=== PATIENT | female | born 1950 | race Caucasian/White ===

== ENCOUNTER 2020-06-11 09:44 | Day surgery (SDC) | payer MEDICARE ==
[~2020-06-11] VITALS: Ht 172.7 cm; Wt 140.2 kg
[~2020-06-11 09:44] MED LIST: EUTHYROX150 MCG PO; Vitamin D2000 UNIT PO
--- NOTE | 2020-06-11 12:15 | NUR ---
06/11/20 1215 Sully Aguilar PT TRANSFERS FROM [facility] TO [facility] WITHOUT DIFFICULTY. STATES PAIN TOELRABLE AT 4/10. PT O2 SATS DROP TO 89% ON RA. PLACED PT ON O2 AT 2L VIA NC. PT DENIES NEEDS. WILL CONTINUE TO MONITOR.
== END 2020-06-11 13:00 | disposition home or self-care (01) ==
LOC: ORSCSDS 09:44
PROVIDERS: Orthopaedic Surgery
PROC: 0RNJ4ZZ Release Right Shoulder Joint, Percutaneous Endoscopic Approach (ICD-10-PCS; principal; 2020-06-11 11:30)
PROC: 0LU14KZ Supplement Right Shoulder Tendon with Nonautologous Tissue Substitute, Percutaneous Endoscopic Approach (ICD-10-PCS; principal; 2020-06-11 11:30)
PROC: 0RBJ4ZZ Excision of Right Shoulder Joint, Percutaneous Endoscopic Approach (ICD-10-PCS; principal; 2020-06-11 11:30)
PROC: 0LQ14ZZ Repair Right Shoulder Tendon, Percutaneous Endoscopic Approach (ICD-10-PCS; principal; 2020-06-11 11:30)
DX: M75.111 Incomplete rotator cuff tear or rupture of right shoulder, not specified as traumatic (principal); M19.011 Primary osteoarthritis, right shoulder; M75.51 Bursitis of right shoulder; M75.41 Impingement syndrome of right shoulder; F17.210 Nicotine dependence, cigarettes, uncomplicated; J44.9 Chronic obstructive pulmonary disease, unspecified; E03.9 Hypothyroidism, unspecified; E66.01 Morbid (severe) obesity due to excess calories; Z68.42 Body mass index [BMI] 45.0-49.9, adult; Z79.899 Other long term (current) drug therapy
CPT/HCPCS: C1713; J0171; J0690; J1100; J2250; J2405; J2704; J3010; J7120

== ENCOUNTER 2024-10-13 18:00 | Inpatient (IN) | payer MEDICARE ==
[~2024-10-13] VITALS: Ht 172.7 cm; Wt 135.0 kg
[2024-10-13] MEDS ORDERED: Vancomycin HCL 2,000 MG in NS 520 ML IV ONE (22:15)
[2024-10-13 22:33] LABS: Hematocrit 38.2 % (33.0-51.0); Hemoglobin 13.2 g/dL (11.5-16.0); Mean Corpuscular HGB 30.4 pg (26.0-34.0); Mean Corpuscular HGB Conc 34.6 g/dL (31.5-36.5); Mean Corpuscular Volume 88 fL (80-100); RDW Standard Deviation 42.1 fL (35.1-46.3); Red Blood Cell Count 4.34 M/mm3 (3.80-5.20); White Blood Cell Count 16.78 K/mm3 (4.00-11.30)
[2024-10-13 22:37] LABS: Bun/Creatinine Ratio 17.9 (12.0-20.0); Calcium, Blood 8.7 mg/dL (8.5-10.1); Creatinine, Blood 1.12 mg/dL (0.40-1.00); Potassium, Blood 3.9 mmol/L (3.5-5.5)
[2024-10-13 22:58] LABS: BAND PERCENT MAN 1 % (0-8); BASOPHILS ABSOLUTE MAN 0.16 K/mm3 (0.00-0.23); BASOPHILS PERCENT MAN 1 % (0-2); EOSINOPHILS PERCENT MAN 0 % (0-6); LYMPHOCYTES ABSOLUTE MAN 1.17 K/mm3 (0.84-5.20); LYMPHOCYTES PERCENT MAN 7 % (21-46); METAMYELOCYTE ABSOLUTE MAN 0.33 K/mm3 (0.00-0.00); METAMYELOCYTE PERCENT MAN 2 % (0-0); MONOCYTES PERCENT MAN 6 % (4-13); MYELOCYTE ABSOLUTE MAN 0.33 K/mm3 (0.00-0.00); MYELOCYTE PERCENT MAN 2 % (0-0); NEUTROPHILS ABSOLUTE MAN 13.75 K/mm3 (1.96-9.15); Platelet Count 381 K/mm3 (150-400); SEG NEUTROPHILS PERCENT MAN 81 % (41-73); TOTAL CELLS COUNTED 100
[2024-10-13] MEDS ORDERED: FLU VACC TS2024-25(6MOS UP)/PF 45 MCG/0.5 ML SYRINGE IM ONE (23:05)
[2024-10-13] MEDS ORDERED: Acetaminophen 325 MG TABLET PO PRN (23:05)
[2024-10-13] MEDS ORDERED: Ondansetron HCl 2 MG / ML 2ML Vial IV PRN (23:05)
[2024-10-14] MEDS ORDERED: CEFDINIR300 M4 PO (01:22)
[2024-10-14] MEDS ORDERED: ALBUTEROL 108MCG/A A (01:22)
[2024-10-14] MEDS ORDERED: VERAPAMIL ER120 M1 PO (01:22)
[2024-10-14] MEDS ORDERED: ROSUVASTATIN CA20 MG PO (01:22)
[2024-10-14] MEDS ORDERED: Avidoxy100 MG PO (01:22)
[2024-10-14] MEDS ORDERED: OLMESARTAN MEDO40 MG PO (01:23)
[2024-10-14] MEDS ORDERED: KLOR-CON 1010 ME9 PO (01:23)
[2024-10-14] MEDS ORDERED: Hydrocortiso453.6 G1 TP (01:24)
[2024-10-14] MEDS ORDERED: Vancomycin HCL 500 MG in NS 250 ML IV ONE (04:25)
[2024-10-14 05:25] LABS: Hematocrit 34.7 % (33.0-51.0); Hemoglobin 11.7 g/dL (11.5-16.0); Mean Corpuscular HGB 30.1 pg (26.0-34.0); Mean Corpuscular HGB Conc 33.7 g/dL (31.5-36.5); Mean Corpuscular Volume 89 fL (80-100); Mean Platelet Volume 9.7 fL (9.1-12.4); Platelet Count 352 K/mm3 (150-400); RDW Coefficient Variation 13.1 % (11.7-14.2); RDW Standard Deviation 42.8 fL (35.1-46.3); Red Blood Cell Count 3.89 M/mm3 (3.80-5.20); White Blood Cell Count 15.38 K/mm3 (4.00-11.30)
[2024-10-14] MEDS ORDERED: EUTHYROX125 MC1 PO (05:51)
[2024-10-14 05:58] LABS: BAND PERCENT MAN 3 % (0-8); BASOPHILS ABSOLUTE MAN 0.15 K/mm3 (0.00-0.23); BASOPHILS PERCENT MAN 1 % (0-2); EOSINOPHILS ABSOLUTE MAN 0.46 K/mm3 (0.00-0.68); EOSINOPHILS PERCENT MAN 3 % (0-6); LYMPHOCYTES ABSOLUTE MAN 1.99 K/mm3 (0.84-5.20); LYMPHOCYTES PERCENT MAN 13 % (21-46); METAMYELOCYTE PERCENT MAN 2 % (0-0); MONOCYTES ABSOLUTE MAN 1.53 K/mm3 (0.16-1.47); MONOCYTES PERCENT MAN 10 % (4-13); MYELOCYTE ABSOLUTE MAN 0.15 K/mm3 (0.00-0.00); MYELOCYTE PERCENT MAN 1 % (0-0); NEUTROPHILS ABSOLUTE MAN 10.76 K/mm3 (1.96-9.15); SEG NEUTROPHILS PERCENT MAN 67 % (41-73); TOTAL CELLS COUNTED 100
[2024-10-14] MEDS ORDERED: Levothyroxine Sodium 0.125 MG Tab PO SCH (06:00)
[2024-10-14] MEDS ORDERED: Levothyroxine Sodium 0.15 MG Tab PO SCH (06:00)
[2024-10-14 06:04] LABS: Magnesium, Blood 1.5 mg/dL (1.6-2.4); Thyroid Stimulating Hormone 0.423 uIU/mL (0.360-4.800)
[2024-10-14 06:08] LABS: Albumin, Blood 2.1 g/dL (3.4-5.0); Albumin/Globulin Ratio 0.5 (0.8-1.8); Bilirubin, Total 0.3 mg/dL (0.1-1.0); C-Reactive Protein, High Sens. 93.7 mg/dL (0.000-3.000); Calcium, Blood 8.3 mg/dL (8.5-10.1); Creatinine, Blood 0.9 mg/dL (0.40-1.00); Globulin, Blood 4.2 g/dL (2.2-4.0); Potassium, Blood 3.5 mmol/L (3.5-5.5); Total Protein, Blood 6.3 g/dL (6.4-8.2)
[2024-10-14] MEDS ORDERED: Enoxaparin 40 MG/0.4 ML SYR SC SCH (09:00)
[2024-10-14] MEDS ORDERED: Lactobacil 2-S.Thermo-Bifido 1 1 Cap PO SCH (09:00)
[2024-10-14] MEDS ORDERED: Magnesium Sulf 2 GM/Water 50ML 50 ML IV ONE (09:05)
--- NOTE | 2024-10-14 09:14 | NUR ---
RECIEVED REPORT FROM DEVYN GARCIA OVER PHONE FROM ED.
[2024-10-14] MEDS ORDERED: NS 250 ML IV PRN (09:45)
[2024-10-14 09:46] VITALS: BP 123/72
[2024-10-14] MEDS ORDERED: CefTRIAXone Sodium 1,000 MG in NS 100 ML IV ONE (10:45)
[2024-10-14] MEDS ORDERED: Albuterol HFA200 ACT/6.7 GM INH INH PRN (14:05)
[2024-10-14 16:12] VITALS: BP 144/66
--- NOTE | 2024-10-14 16:37 | NUR ---
SHIFT SUMMARY PT AOX4, COOPERATIVE, ABLE TO MAKE NEEDS KNOWN. PT HAS NOT HAD ANY COMPLAINTS TODAY. HERE FOR IV ABX. ON ROOM AIR, TOLERATING IV MEDICATIONS WELL. AMBULATING INDEPENDANTLY TO BATHROOM TO VOID. NO OTHER ACUTE EVENTS TOOK PLACE THIS SHIFT. BED IN LOWEST POSITION, CALL LIGHT WITHIN REACH.
[2024-10-14 20:27] VITALS: BP 146/70
[2024-10-14] MEDS ORDERED: Hydrocortisone 2.5% Cream 30 GM Tube TOP SCH (21:00)
[2024-10-15] MEDS ORDERED: Vancomycin HCL 2,000 MG in NS 500 ML IV SCH (02:00)
[2024-10-15 02:52] VITALS: BP 144/63
--- NOTE | 2024-10-15 04:36 | NUR ---
SHIFT SUMMARY ADMITTED FOR LLE CELLULITIS. FULL CODE. IV ANTIB RX ARE SCHEDULED. SHE IS ON RA, A&O X4, INDEPENDENT IN ROOM. ADA DIET. ACHS CBG'S. BLOOD CULTURES PENDING. SHE LIVES WITH FAMILY. FAILED OUTPT PO ANTIB RX. NO NEW CONCERNS THIS SHIFT.
[2024-10-15 07:21] VITALS: BP 125/67
[2024-10-15] MEDS ORDERED: Verapamil HCL 120 MG TABCR PO SCH (09:00)
[2024-10-15] MEDS ORDERED: Potassium Chloride 10 Meq Tablet SA PO SCH (09:00)
[2024-10-15] MEDS ORDERED: Cholecalciferol 1000 Unit Tablet (=25MCG) PO SCH (09:00)
[2024-10-15] MEDS ORDERED: CefTRIAXone Sodium 1,000 MG in NS 100 ML IV SCH (09:00)
[2024-10-15] MEDS ORDERED: Rosuvastatin Calcium 10 MG Tab PO SCH (09:00)
[2024-10-15] MEDS ORDERED: Losartan Potassium 50 MG Tab PO SCH (09:00)
[2024-10-15] MEDS ORDERED: OZEMPIC 2 MG/3 ML SC SCH (13:35)
--- NOTE | 2024-10-15 13:43 | NUR ---
PT FAMILY BROUGHT MEDICATION FROM HOME, "[id number]". THIS RN TUBED TO PHARMACY FOR VERIFICATION. DOSE IS SUPPOSED TO BE 0.50MG ON SUNDAYS SC.
[2024-10-15 15:33] VITALS: BP 123/55
--- NOTE | 2024-10-15 17:59 | NUR ---
SHIFT SUMMARY PT AOX4, COOPERATIVE, ABLE TO MAKE NEEDS KNOWN. PT STAYING FOR IV ABX FOR LLE CELLULITIS. DOES NOT EXPRESS ANY PAIN. AMBULATING INDEPENDANTLY IN ROOM TO BATHROOM. NO OTHER ACUTE EVENTS TOOK PLACE DURING SHIFT. BED IN LOWEST POSITION, CALL LIGHT WITHIN REACH.
[2024-10-15 20:26] VITALS: BP 127/59
[2024-10-16 01:29] LABS: Vancomycin, Trough 13.4 ug/mL (5.0-10.0)
--- NOTE | 2024-10-16 05:02 | NUR ---
SHIFT SUMMARY. NO ACUTE CHANGES NOTED THIS SHIFT. PATIENT IS A&OX4. PATIENT CALLS APPROPRIATELY AND IS ABLE TO MAKE HER NEEDS KNOWN. PATIENT HAD SHOWER THIS SHIFT. PATIENT IS RECEIVING IV ABX AT THIS TIME. BED IS LOCKED IN THE LOWEST POSITION WITH CALL LIGHT IN REACH. CARE IS ONGOING.
[2024-10-16 06:17] VITALS: BP 123/60
[2024-10-16 07:24] VITALS: BP 142/55
[2024-10-16] MEDS ORDERED: Furosemide 10 MG / ML 2ML Vial IV SCH (11:00)
[2024-10-16 16:26] VITALS: BP 135/64
--- NOTE | 2024-10-16 17:49 | NUR ---
SHIFT SUMMARY PT CONT LEVEL OF CARE WITH NO ACUTE CHANGES NOTED. PLAN IS TO CONT IV ABT AND START LASIX TO DTRY AND DECREASE SWELLING AND INFECTION TO LLE POSSIBLE DC IN A COUPLE DAYS PENDING IMPROVEMENT OF CELLULITIS.
[2024-10-16 22:24] VITALS: BP 135/59
[2024-10-17 06:32] VITALS: BP 148/71
[2024-10-17 07:25] LABS: BASOPHILS ABSOLUTE AUTO 0.06 K/mm3 (0.00-0.23); BASOPHILS PERCENT AUTO 1 % (0-2); EOSINOPHILS ABSOLUTE AUTO 0.18 K/mm3 (0.00-0.68); EOSINOPHILS PERCENT AUTO 2 % (0-6); Hematocrit 35.3 % (33.0-51.0); Hemoglobin 11.6 g/dL (11.5-16.0); IMMATURE GRAN ABSOLUTE AUTO 0.27 K/mm3 (0.00-0.10); IMMATURE GRAN PERCENT AUTO 3 % (0-1); LYMPHOCYTES ABSOLUTE AUTO 1.35 K/mm3 (0.84-5.20); LYMPHOCYTES PERCENT AUTO 13 % (21-46); MONOCYTES ABSOLUTE AUTO 1.22 K/mm3 (0.16-1.47); MONOCYTES PERCENT AUTO 12 % (4-13); Mean Corpuscular HGB 29.5 pg (26.0-34.0); Mean Corpuscular HGB Conc 32.9 g/dL (31.5-36.5); Mean Corpuscular Volume 90 fL (80-100); Mean Platelet Volume 9.6 fL (9.1-12.4); NEUTROPHILS ABSOLUTE AUTO 7.31 K/mm3 (1.96-9.15); NEUTROPHILS PERCENT AUTO 70 % (41-73); Platelet Count 352 K/mm3 (150-400); RDW Coefficient Variation 12.9 % (11.7-14.2); RDW Standard Deviation 42.8 fL (35.1-46.3); Red Blood Cell Count 3.93 M/mm3 (3.80-5.20); White Blood Cell Count 10.39 K/mm3 (4.00-11.30)
[2024-10-17 07:44] LABS: Bun/Creatinine Ratio 15.1 (12.0-20.0); Calcium, Blood 8.4 mg/dL (8.5-10.1); Creatinine, Blood 0.86 mg/dL (0.40-1.00)
--- NOTE | 2024-10-17 08:18 | NUR ---
SHIFT SUMMARY. NO ACUTE CHANGES NOTED. PATIENT IS A&X4, CALLS APPROPRIATELY AND IS ABLE TO MAKE HER NEEDS KNOWN. PATIENT IS INDEPENDENT IN ROOM. PLAN IS TO CONTINUE IV ABX AND LASIX-DOCTOR TO REASSESS TOMORROW 10/18/24 TO SEE PROGRESS AND POSSIBLE DC IN THE NEXT DAY OR TWO. BED IS LOCKED IN THE LOWEST POSITION WITH CALL LIGHT IN REACH. REPORT GIVEN TO DAYSHIFT NURSE.
[2024-10-17 08:35] VITALS: BP 140/71
[2024-10-17 15:22] VITALS: BP 143/59
--- NOTE | 2024-10-17 19:41 | NUR ---
PT A&OX4, VSS, RA, NON-TELE. REDNESS AND SWELLING TO LLE D/T CELLULITIS. IV LASIX GIVEN X 2 WITH GOOD URINE OUTPUT, PT INDEPENDENT IN ROOM. IV ABX CONTINUED. PT COOPERATIVE WITH CARES, NO ACUTE CHANGES THIS SHIFT. CALL LIGHT IN REACH, BED IN LOW LOCKED POSITION.
[2024-10-17 20:03] VITALS: BP 127/56
[2024-10-18 04:41] VITALS: BP 123/50
--- NOTE | 2024-10-18 05:11 | NUR ---
SHIFT SUMMARY. NO ACUTE CHANGES NOTED. PATIENT IS A&OX4, CALLS APPROPRIATELY AND IS ABLE TO MAKE HER NEEDS KNOWN. PATIENT IS INDEPENDENT IN ROOM. PATIENT RECEIVIING IV ABX ORDERED. PATIENT IS HOPEFUL TO GO HOME TODAY. PATIENT REPORTS THAT SHE FEELS HER CELLULITIS IS IMPROVING BUT WOULD LIKE THE SWELLING TO HER LEFT FOOT TO DECREASE IT IS UNCOMFORTABLE. BED IS LOCKED IN THE LOWEST POSITION WITH CALL LIGHT IN REACH. CARE IS ONGOING.
[2024-10-18 05:15] LABS: BASOPHILS ABSOLUTE AUTO 0.05 K/mm3 (0.00-0.23); BASOPHILS PERCENT AUTO 1 % (0-2); EOSINOPHILS ABSOLUTE AUTO 0.18 K/mm3 (0.00-0.68); EOSINOPHILS PERCENT AUTO 2 % (0-6); Hematocrit 34.8 % (33.0-51.0); Hemoglobin 11.6 g/dL (11.5-16.0); IMMATURE GRAN ABSOLUTE AUTO 0.15 K/mm3 (0.00-0.10); IMMATURE GRAN PERCENT AUTO 2 % (0-1); LYMPHOCYTES ABSOLUTE AUTO 1.58 K/mm3 (0.84-5.20); LYMPHOCYTES PERCENT AUTO 16 % (21-46); MONOCYTES ABSOLUTE AUTO 1.19 K/mm3 (0.16-1.47); MONOCYTES PERCENT AUTO 12 % (4-13); Mean Corpuscular HGB 30.2 pg (26.0-34.0); Mean Corpuscular HGB Conc 33.3 g/dL (31.5-36.5); Mean Corpuscular Volume 91 fL (80-100); Mean Platelet Volume 9.8 fL (9.1-12.4); NEUTROPHILS ABSOLUTE AUTO 6.99 K/mm3 (1.96-9.15); NEUTROPHILS PERCENT AUTO 69 % (41-73); Platelet Count 302 K/mm3 (150-400); RDW Coefficient Variation 12.9 % (11.7-14.2); RDW Standard Deviation 42.7 fL (35.1-46.3); Red Blood Cell Count 3.84 M/mm3 (3.80-5.20); White Blood Cell Count 10.14 K/mm3 (4.00-11.30)
[2024-10-18 05:51] LABS: Bun/Creatinine Ratio 16.7 (12.0-20.0); Calcium, Blood 8.6 mg/dL (8.5-10.1); Creatinine, Blood 1.02 mg/dL (0.40-1.00); Potassium, Blood 3.7 mmol/L (3.5-5.5)
[2024-10-18 07:49] VITALS: BP 128/67
[2024-10-18] MEDS ORDERED: SULTRIDS PO (11:30)
[2024-10-18] MEDS ORDERED: FURO40 PO (11:30)
== END 2024-10-18 11:55 | disposition home or self-care (01) | DRG 872 ==
LOC: ER 18:00 → MEDS 23:00 → ERHOLD 23:00 → MEDS 10-14 09:14
PROVIDERS: Emergency Medicine; Family Medicine; ADMIT Student in an Organized Health Care Education/Training Program
DX: A41.9 Sepsis, unspecified organism (principal); N17.9 Acute kidney failure, unspecified; L03.116 Cellulitis of left lower limb; F17.213 Nicotine dependence, cigarettes, with withdrawal; Z68.41 Body mass index [BMI] 40.0-44.9, adult; E03.9 Hypothyroidism, unspecified; I12.9 Hypertensive chronic kidney disease with stage 1 through stage 4 chronic kidney disease, or unspecified chronic kidney disease; E11.22 Type 2 diabetes mellitus with diabetic chronic kidney disease; S90.425A Blister (nonthermal), left lesser toe(s), initial encounter; E66.01 Morbid (severe) obesity due to excess calories; E88.09 Other disorders of plasma-protein metabolism, not elsewhere classified; W19.XXXA Unspecified fall, initial encounter; N18.31 Chronic kidney disease, stage 3a; Z91.040 Latex allergy status; Z90.49 Acquired absence of other specified parts of digestive tract; Z90.89 Acquired absence of other organs; Z90.710 Acquired absence of both cervix and uterus; Z79.890 Hormone replacement therapy; Z98.890 Other specified postprocedural states
CPT/HCPCS: 36415; 80048; 80053; 80202; 82947; 83036; 83605; 83735; 84443; 85025; 85651; 86141; 87040; 94760; 97161; 99285; A9270; J0696; J1650; J1940; J3370; J3475; J7040; J7050